=== PATIENT | female | born 1930 | race Caucasian/White ===

== ENCOUNTER 2017-10-30 02:49 | Inpatient (IN) ==
[2017-10-30] MEDS ORDERED: DILTIAZEM 100 MG VIAL.ADD IV STA (03:00)
[2017-10-30] MEDS ORDERED: DILTIAZEM INJ 100 MG in SODIUM CHLORIDE 0.9% 100 ML IV SCH (03:00)
[2017-10-30] MEDS ORDERED: DILTIAZEM 100 MG VIAL.ADD IV ONE ×2 (03:09)
[2017-10-30] MEDS ORDERED: SODIUM CHLORIDE 0.9% 100 ML IV ONE (03:10)
[2017-10-30] MEDS ORDERED: SODIUM CHLORIDE 0.9% 1,000 ML IV STA (03:32)
[2017-10-30 03:38] LABS: Basophils # 0.1 10*3/uL (0.0-0.2); Basophils % 1.1 % (0.0-0.8); Hematocrit 43.7 VOL% (35.7-47.0); Hemoglobin 13.8 GM/DL (12.0-16.0); Immature Granulocytes Absolute 0.09 #; Lymphocytes % 31.8 % (21.3-54.2); Mean Corpuscular HGB Conc 31.6 GM/DL (32-36); Mean Corpuscular Hemoglobin 29 PG (27-34); Mean Corpuscular Volume 92.4 FL (87-102); Mean Platelet Volume 10.5 FL (9.6-12.0); Monocytes # 1.1 10*3/uL (0.11-0.8); Monocytes % 11.6 % (1.7-12.7); Neutrophils # 5.1 10*3/uL (1.4-7.4); Neutrophils % 54.5 % (38.7-73.9); Platelet Count 220 T/CUMM (130-400); Red Blood Count 4.73 MC/CUMM (3.8-5.5); Red Cell Distribution Width 13.7 % (9.3-17.3); White Blood Count 9.4 T/CUMM (4-12)
[2017-10-30 03:52] LABS: Alanine Aminotransferase 35 U/L (13-56); Albumin 2.9 G/DL (3.4-5.0); Alkaline Phosphatase 60 U/L (45-117); Aspartate Amino Transferase 40 U/L (0-37); Bilirubin,Total < 0.39 MG/DL (0.2-1.0); Blood Urea Nitrogen 24 MG/DL (7-18); Calcium 8.4 MG/DL (8.5-10.1); Glucose 128 MG/DL (74-106); Osmolality,Calculated 286.3 MOS/KG (273-304); Sodium 141 MMOL/L (136-145)
[2017-10-30] MEDS ORDERED: ENOXAPARIN 60 MG/0.6 ML SYRINGE SUBCUT STA (04:47)
[2017-10-30 05:00] LABS: Apearance,Urine CLEAR (Clear); Bacteria,Urine Occasional /HPF (Few); Bilirubin,Urine Negative (Negative); Blood, Urine Negative (Negative); Glucose,Urine (UA) Negative (Negative); Hyaline Casts,Urine 1 /LPF (0-3); Ketones,Urine Negative (Negative); Mucus,Urine Occasional /LPF (Occasional); Nitrite,Urine Negative (Negative); Protein,Urine Negative; RBC,Urine 1 /HPF (0-4); Squamous Epithelial Cell,Urine Occasional /HPF (0-10); Urine Color Straw (Yellow); Urine Specific Gravity 1.004 (1.001-1.035); Urine Urobilinogen < 2.0 EU/DL (0.2-1.0); WBC,Urine 14 /HPF (0-6)
[2017-10-30] MEDS ORDERED: ACETAMINOPHEN 325 MG TABLET PO PRN (05:08)
[2017-10-30] MEDS ORDERED: MORPHINE 2 MG/1 ML SYRINGE IV PRN (05:12)
[2017-10-30] MEDS ORDERED: NITROGLYCERIN SL 0.4 MG TABLET SL PRN (05:13)
[2017-10-30] MEDS ORDERED: SODIUM CHLORIDE 0.45% 1,000 ML IV SCH (05:30)
[2017-10-30] MEDS ORDERED: PANTOPRAZOLE 40 MG TABLET PO SCH (09:00)
[2017-10-30] MEDS ORDERED: APIXABAN 2.5 MG TABLET PO SCH (09:00)
[2017-10-30] MEDS: DILTIAZEM 60 MG TABLET PO SCH ×4 (12:56→21:02)
[2017-10-30] MEDS: predniSONE 5 MG TABLET PO SCH (13:01)
[2017-10-30] MEDS: MAGNESIUM OXIDE 400 MG TABLET PO SCH (13:01)
[2017-10-30] MEDS: HYDROXYCHLOROQUINE 200 MG TABLET PO SCH (13:01)
[2017-10-30] MEDS ORDERED: TICAGRELOR 90 MG TABLET PO ONE (13:02)
[2017-10-30] MEDS: METOPROLOL SUCCINATE XL 100 MG TABLET PO SCH ×2 (13:02→21:02)
[2017-10-30] MEDS: POTASSIUM CHLORIDE 10 MEQ TABLET PO SCH (13:04)
[2017-10-30] MEDS: ASPIRIN EC 81 MG TABLET PO SCH (13:22)
[2017-10-30] MEDS ORDERED: ONDANSETRON 4 MG/2 ML VIAL IV PRN (15:43)
[2017-10-30] MEDS ORDERED: LIDOCAINE 1% 20 ML VIAL ONE (16:43)
[2017-10-30] MEDS ORDERED: diphenhydrAMINE CAP 25 MG CAPSULE PO ONE (16:48)
[2017-10-30] MEDS ORDERED: DIAZEPAM 5 MG TABLET ONE (16:48)
[2017-10-30] MEDS ORDERED: diphenhydrAMINE CAP 25 MG CAPSULE ONE (16:49)
[2017-10-30] MEDS ORDERED: DIAZEPAM 5 MG TABLET PO ONE (16:49)
[2017-10-30] MEDS ORDERED: MIDAZOLAM 2 MG/2 ML VIAL ONE (17:01)
[2017-10-30] MEDS ORDERED: ASPIRIN CHEW 81 MG TABLET PO ONE (17:01)
[2017-10-30] MEDS ORDERED: MEPERIDINE 25 MG/1 ML VIAL ONE (17:01)
[2017-10-30] MEDS ORDERED: NIFEdipine 10 MG CAPSULE ONE (17:14)
[2017-10-30] MEDS ORDERED: ENOXAPARIN 80 MG/0.8 ML SYRINGE SUBCUT SCH (18:00)
[2017-10-30] MEDS ORDERED: ONDANSETRON 4 MG/2 ML VIAL ONE (18:22)
[2017-10-30] MEDS ORDERED: SODIUM CHLORIDE 0.9% 1,000 ML IV SCH (19:00)
[2017-10-30] MEDS ORDERED: METOPROLOL TARTRATE 50 MG TABLET PO SCH (19:00)
[2017-10-30] MEDS ORDERED: ROSUVASTATIN 10 MG TABLET PO SCH (21:00)
[2017-10-30] MEDS: LANSOPRAZOLE ODT 30 MG TABLET PO SCH (21:02)
[2017-10-30] MEDS: TICAGRELOR 90 MG TABLET PO SCH (21:02)
[2017-10-30] MEDS ORDERED: ENALAPRIL 2.5 MG/2 ML VIAL IV PRN (23:38)
[2017-10-30] MEDS ORDERED: LOPERAMIDE 2 MG CAPSULE PO PRN (23:38)
[2017-10-31 02:46] LABS: Basophils # 0.1 10*3/uL (0.0-0.2); Basophils % 0.5 % (0.0-0.8); Hematocrit 44.5 VOL% (35.7-47.0); Hemoglobin 14.2 GM/DL (12.0-16.0); Immature Granulocytes % 0.8 %; Immature Granulocytes Absolute 0.11 #; Lymphocytes # 1.6 10*3/uL (1.4-4.0); Mean Corpuscular HGB Conc 31.9 GM/DL (32-36); Mean Corpuscular Hemoglobin 29 PG (27-34); Mean Corpuscular Volume 90.1 FL (87-102); Mean Platelet Volume 10.5 FL (9.6-12.0); Monocytes # 1.7 10*3/uL (0.11-0.8); Monocytes % 12.6 % (1.7-12.7); Neutrophils % 74.1 % (38.7-73.9); Platelet Count 217 T/CUMM (130-400); Red Blood Count 4.94 MC/CUMM (3.8-5.5); Red Cell Distribution Width 13.7 % (9.3-17.3); White Blood Count 13.5 T/CUMM (4-12)
[2017-10-31 05:07] LABS: Troponin I Only 0.377 NG/ML (0.00-0.045)
[2017-10-31 05:14] LABS: Calcium 8.1 MG/DL (8.5-10.1); Osmolality,Calculated 276.5 MOS/KG (273-304); Potassium 3.8 MMOL/L (3.5-5.1)
[2017-10-31] MEDS: predniSONE 5 MG TABLET PO SCH (08:23)
[2017-10-31] MEDS: MAGNESIUM OXIDE 400 MG TABLET PO SCH (08:23)
[2017-10-31] MEDS: LANSOPRAZOLE ODT 30 MG TABLET PO SCH (08:24)
[2017-10-31] MEDS: HYDROXYCHLOROQUINE 200 MG TABLET PO SCH (08:24)
[2017-10-31] MEDS: TICAGRELOR 90 MG TABLET PO SCH (08:24)
[2017-10-31] MEDS: ASPIRIN EC 81 MG TABLET PO SCH (08:24)
[2017-10-31] MEDS: METOPROLOL SUCCINATE XL 100 MG TABLET PO SCH (08:24)
[2017-10-31] MEDS: POTASSIUM CHLORIDE 10 MEQ TABLET PO SCH (08:24)
[2017-10-31] MEDS: DILTIAZEM 60 MG TABLET PO SCH (08:25)
[2017-10-31] MEDS ORDERED: ISOSORBIDE MONONITRATE 30 MG TABLET PO SCH (09:00)
[2017-10-31 11:47] VITALS: BP 131/65
[2017-10-31] MEDS ORDERED: DILTIAZEM CD 180 MG CAPSULE PO SCH (12:00)
[2017-10-31] MEDS ORDERED: FUROSEMIDE 20 MG TABLET PO SCH (12:00)
[2017-10-31 16:25] LABS: Apearance,Urine CLEAR (Clear); Bilirubin,Urine Negative (Negative); Blood, Urine Negative (Negative); Glucose,Urine (UA) 50 mg/dL (Negative); Ketones,Urine Negative (Negative); Mucus,Urine Occasional /LPF (Occasional); Nitrite,Urine Negative (Negative); Protein,Urine Negative; RBC,Urine 1 /HPF (0-4); Urine Color Yellow (Yellow); Urine Urobilinogen < 2.0 EU/DL (0.2-1.0); WBC,Urine 8 /HPF (0-6)
== END 2017-10-31 14:48 | disposition home or self-care (01) | DRG 281 ==
LOC: EDUNIT# → N.ED 02:49 → N.EDINP 05:08 → SUATTDRO 05:08 → N.TELES 05:39
PROVIDERS: ADMIT Internal Medicine; ATTEND Internal Medicine

== ENCOUNTER 2017-11-25 19:50 | Inpatient (IN) ==
[2017-11-25] MEDS ORDERED: DILTIAZEM 100 MG VIAL.ADD IV ONE (20:18)
[2017-11-25] MEDS ORDERED: METOPROLOL TARTRATE 5 MG/5 ML VIAL IV ONE (20:36)
[2017-11-25] MEDS ORDERED: DILTIAZEM 50 MG/10 ML VIAL IV ONE (20:37)
[2017-11-25] MEDS ORDERED: DILTIAZEM 50 MG/10 ML VIAL IV STA (21:02)
[2017-11-25] MEDS ORDERED: ONDANSETRON 4 MG/2 ML VIAL IV STA (21:02)
[2017-11-25] MEDS ORDERED: ASPIRIN 325 MG TABLET PO STA (21:02)
[2017-11-25 21:19] LABS: Basophils # 0.1 10*3/uL (0.0-0.2); Basophils % 0.6 % (0.0-0.8); Hematocrit 43.1 VOL% (35.7-47.0); Hemoglobin 13.4 GM/DL (12.0-16.0); Immature Granulocytes Absolute 0.14 #; Lymphocytes # 4.5 10*3/uL (1.4-4.0); Lymphocytes % 31.1 % (21.3-54.2); Mean Corpuscular HGB Conc 31.1 GM/DL (32-36); Mean Corpuscular Hemoglobin 28 PG (27-34); Mean Corpuscular Volume 91.3 FL (87-102); Mean Platelet Volume 10.8 FL (9.6-12.0); Monocytes # 1.6 10*3/uL (0.11-0.8); Monocytes % 10.7 % (1.7-12.7); Neutrophils # 8.2 10*3/uL (1.4-7.4); Neutrophils % 56.6 % (38.7-73.9); Platelet Count 284 T/CUMM (130-400); Red Blood Count 4.72 MC/CUMM (3.8-5.5); Red Cell Distribution Width 13.8 % (9.3-17.3); White Blood Count 14.5 T/CUMM (4-12)
[2017-11-25 21:25] LABS: INR 1.1; PT Patient Result 11.5 SECS
[2017-11-25] MEDS ORDERED: DILTIAZEM INJ 100 MG in SODIUM CHLORIDE 0.9% 100 ML IV SCH (21:30)
[2017-11-25 21:32] LABS: Albumin 3.3 G/DL (3.4-5.0); Bilirubin,Total 0.6 MG/DL (0.2-1.0); Osmolality,Calculated 280.7 MOS/KG (273-304); Potassium 4.1 MMOL/L (3.5-5.1); Total Protein 7.2 G/DL (6.4-8.3)
[2017-11-25] MEDS ORDERED: FUROSEMIDE 40 MG/4 ML VIAL IV STA (21:56)
[2017-11-25] MEDS ORDERED: ONDANSETRON 4 MG/2 ML VIAL ONE (22:03)
[2017-11-25] MEDS ORDERED: FUROSEMIDE 20 MG/2 ML VIAL ONE (22:03)
[2017-11-25] MEDS ORDERED: MORPHINE 4 MG/1 ML VIAL ONE (22:03)
[2017-11-25] MEDS ORDERED: ASPIRIN 325 MG TABLET ONE (22:03)
[2017-11-25] MEDS: MORPHINE 2 MG/1 ML SYRINGE IV STA ×2 (22:04→22:12)
[2017-11-25 22:42] LABS: Apearance,Urine CLEAR (Clear); Bacteria,Urine Occasional /HPF (Few); Bilirubin,Urine Negative (Negative); Blood, Urine Small mg/dL (Negative); Glucose,Urine (UA) Negative (Negative); Hyaline Casts,Urine 5 /LPF (0-3); Ketones,Urine Negative (Negative); Mucus,Urine Occasional /LPF (Occasional); Nitrite,Urine Negative (Negative); Protein,Urine Negative; RBC,Urine 2 /HPF (0-4); Squamous Epithelial Cell,Urine Occasional /HPF (0-10); Urine Color Straw (Yellow); Urine Specific Gravity 1.005 (1.001-1.035); Urine Urobilinogen < 2.0 EU/DL (0.2-1.0); WBC,Urine 19 /HPF (0-6)
[2017-11-25] MEDS ORDERED: MAGNESIUM SULF RIDER 2 GM in PREMIX 1 EACH IV PRN (22:55)
[2017-11-25] MEDS ORDERED: DILTIAZEM 60 MG TABLET PO PRN (22:55)
[2017-11-25] MEDS ORDERED: ALBUTEROL/IPRATROPIUM 3 ML NEB RESP TX PRN (22:55)
[2017-11-25] MEDS ORDERED: MAGNESIUM SULF RIDER 4 GM in PREMIX 1 EACH IV PRN (22:55)
[2017-11-25] MEDS ORDERED: ONDANSETRON 4 MG/2 ML VIAL IV PRN (22:55)
[2017-11-25] MEDS ORDERED: MORPHINE 4 MG/1 ML VIAL IV PRN (22:55)
[2017-11-25] MEDS ORDERED: POTASSIUM CHLORIDE 20 MEQ TABLET PO PRN (22:55)
[2017-11-25] MEDS ORDERED: NITROGLYCERIN SL 0.4 MG TABLET SL PRN (22:55)
[2017-11-25] MEDS: SODIUM CHLORIDE 0.9% 1,000 ML IV SCH (23:30)
[2017-11-26 05:05] LABS: Basophils # 0.1 10*3/uL (0.0-0.2); Basophils % 0.4 % (0.0-0.8); Hematocrit 39.4 VOL% (35.7-47.0); Hemoglobin 12.6 GM/DL (12.0-16.0); Immature Granulocytes % 0.7 %; Immature Granulocytes Absolute 0.08 #; Lymphocytes # 2.6 10*3/uL (1.4-4.0); Lymphocytes % 22.4 % (21.3-54.2); Mean Corpuscular Hemoglobin 29 PG (27-34); Mean Corpuscular Volume 89.3 FL (87-102); Mean Platelet Volume 10.5 FL (9.6-12.0); Monocytes # 1.1 10*3/uL (0.11-0.8); Monocytes % 9.4 % (1.7-12.7); Neutrophils # 7.8 10*3/uL (1.4-7.4); Neutrophils % 67.1 % (38.7-73.9); Platelet Count 260 T/CUMM (130-400); Red Blood Count 4.41 MC/CUMM (3.8-5.5); White Blood Count 11.6 T/CUMM (4-12)
[2017-11-26 05:44] LABS: Bilirubin,Total 0.9 MG/DL (0.2-1.0); Calcium 9.3 MG/DL (8.5-10.1); Osmolality,Calculated 282.3 MOS/KG (273-304); Potassium 4.5 MMOL/L (3.5-5.1); Risk Ratio 2.2; Thyroid Stimulating Hormone 2.98 uIU/ml (0.358-3.74); Total Protein 6.4 G/DL (6.4-8.3); VLDL CHOLESTEROL 14.4 MG/DL
[2017-11-26] MEDS: ASPIRIN EC 81 MG TABLET PO SCH (08:35)
[2017-11-26] MEDS: HYDROXYCHLOROQUINE 200 MG TABLET PO SCH (08:35)
[2017-11-26] MEDS: POTASSIUM CHLORIDE 10 MEQ TABLET PO SCH ×2 (08:35→20:12)
[2017-11-26] MEDS: METOPROLOL TARTRATE 50 MG TABLET PO SCH (08:35)
[2017-11-26] MEDS: MAGNESIUM OXIDE 400 MG TABLET PO SCH (08:35)
[2017-11-26] MEDS: APIXABAN 2.5 MG TABLET PO SCH ×2 (08:36→20:12)
[2017-11-26] MEDS: predniSONE 5 MG TABLET PO SCH (08:36)
[2017-11-26] MEDS: ISOSORBIDE MONONITRATE 30 MG TABLET PO SCH (08:36)
[2017-11-26] MEDS: PANTOPRAZOLE 40 MG TABLET PO SCH (08:36)
[2017-11-26] MEDS: FUROSEMIDE 20 MG/2 ML VIAL IV SCH ×2 (08:40→16:05)
[2017-11-26] MEDS: LACTOBACILLUS ACIDOPHILUS/BULGARICUS CAPLET PO SCH (09:02)
[2017-11-26] MEDS ORDERED: BISACODYL 5 MG TABLET PO PRN (15:27)
[2017-11-26] MEDS ORDERED: ZALEPLON 5 MG CAPSULE PO PRN (15:27)
[2017-11-26] MEDS ORDERED: ACETAMINOPHEN 325 MG TABLET PO PRN (15:27)
[2017-11-26] MEDS ORDERED: guaiFENesin/DM ER 600-30 MG TABLET PO PRN (15:27)
[2017-11-26] MEDS ORDERED: diphenhydrAMINE CAP 25 MG CAPSULE PO PRN (15:27)
[2017-11-26] MEDS ORDERED: DILTIAZEM CD 240 MG CAPSULE PO ONE (15:33)
[2017-11-27] MEDS: SODIUM CHLORIDE 0.9% 1,000 ML IV SCH (02:00)
[2017-11-27 07:57] VITALS: BP 146/72
[2017-11-27] MEDS ORDERED: DILTIAZEM CD 240 MG CAPSULE PO SCH (09:00)
[2017-11-27] MEDS: LACTOBACILLUS ACIDOPHILUS/BULGARICUS CAPLET PO SCH (09:31)
[2017-11-27] MEDS: ASPIRIN EC 81 MG TABLET PO SCH (09:31)
[2017-11-27] MEDS: APIXABAN 2.5 MG TABLET PO SCH (09:32)
[2017-11-27] MEDS: METOPROLOL TARTRATE 50 MG TABLET PO SCH (09:32)
[2017-11-27] MEDS: ISOSORBIDE MONONITRATE 30 MG TABLET PO SCH (09:33)
[2017-11-27] MEDS: POTASSIUM CHLORIDE 10 MEQ TABLET PO SCH (09:34)
[2017-11-27] MEDS: MAGNESIUM OXIDE 400 MG TABLET PO SCH (09:34)
[2017-11-27] MEDS: predniSONE 5 MG TABLET PO SCH (09:35)
[2017-11-27] MEDS: HYDROXYCHLOROQUINE 200 MG TABLET PO SCH (09:35)
[2017-11-27] MEDS: PANTOPRAZOLE 40 MG TABLET PO SCH (09:35)
[2017-11-27] MEDS: FUROSEMIDE 20 MG/2 ML VIAL IV SCH (09:38)
== END 2017-11-27 12:26 | disposition home or self-care (01) | DRG 308 ==
LOC: N.ED 19:50 → N.EDINP 22:02 → N.TELEN 22:27
PROVIDERS: ADMIT Internal Medicine Clinical Cardiac Electrophysiology; ATTEND Internal Medicine Clinical Cardiac Electrophysiology

== ENCOUNTER 2018-07-16 11:51 | Observation (INO) ==
[2018-07-16 13:25] LABS: Basophils # 0.1 10*3/uL (0.0-0.2); Basophils % 0.8 % (0.0-0.8); Hematocrit 43.8 VOL% (35.7-47.0); Hemoglobin 13.3 GM/DL (12.0-16.0); Immature Granulocytes % 0.7 %; Immature Granulocytes Absolute 0.07 #; Lymphocytes # 2.7 10*3/uL (1.4-4.0); Lymphocytes % 26.1 % (21.3-54.2); Mean Corpuscular HGB Conc 30.4 GM/DL (32-36); Mean Corpuscular Hemoglobin 26 PG (27-34); Mean Corpuscular Volume 86.2 FL (87-102); Mean Platelet Volume 9.6 FL (9.6-12.0); Monocytes # 1.3 10*3/uL (0.11-0.8); Monocytes % 12.8 % (1.7-12.7); Neutrophils # 6.1 10*3/uL (1.4-7.4); Neutrophils % 59.6 % (38.7-73.9); Platelet Count 260 T/CUMM (130-400); Red Blood Count 5.08 MC/CUMM (3.8-5.5); Red Cell Distribution Width 16.3 % (9.3-17.3); White Blood Count 10.3 T/CUMM (4-12)
[2018-07-16 13:58] LABS: Amorphous Crystals,Urine Moderate /HPF (Few); Apearance,Urine CLOUDY (Clear); Bilirubin,Urine Negative (Negative); Blood, Urine Negative (Negative); Glucose,Urine (UA) Negative (Negative); Ketones,Urine Negative (Negative); Nitrite,Urine Negative (Negative); Protein,Urine Negative; RBC,Urine 3 /HPF (0-4); Urine Color Yellow (Yellow); Urine Specific Gravity 1.011 (1.001-1.035); Urine Urobilinogen < 2.0 EU/DL (0.2-1.0); WBC,Urine 3 /HPF (0-6)
[2018-07-16 14:06] LABS: Albumin 3.4 G/DL (3.4-5.0); Bilirubin,Total 0.4 MG/DL (0.2-1.0); Calcium 10.1 MG/DL (8.5-10.1); Osmolality,Calculated 285.3 MOS/KG (273-304); Total Protein 6.9 G/DL (6.4-8.3)
[2018-07-16] MEDS ORDERED: ACETAMINOPHEN 325 MG TABLET PO PRN (14:36)
[2018-07-16] MEDS ORDERED: DILTIAZEM 50 MG/10 ML VIAL IV STA (14:39)
[2018-07-16] MEDS ORDERED: DILTIAZEM 25 MG/5 ML VIAL IV ONE (14:40)
[2018-07-16] MEDS ORDERED: NITROGLYCERIN SL 0.4 MG TABLET SL PRN (14:55)
[2018-07-16] MEDS ORDERED: INFLUENZA VIRUS VACCINE 0.5 ML SYRINGE IM ONE (15:40)
[2018-07-16] MEDS: APIXABAN 2.5 MG TABLET PO SCH (20:57)
[2018-07-16] MEDS: FAMOTIDINE 20 MG TABLET PO SCH (20:57)
[2018-07-16] MEDS ORDERED: METOPROLOL TARTRATE 100 MG TABLET PO SCH (21:00)
[2018-07-17 05:31] LABS: INR 1.1; PT Patient Result 11.7 SECS; Partial Thromboplastin Time 27.4 SECS (0-40)
[2018-07-17 05:36] LABS: Basophils # 0.1 10*3/uL (0.0-0.2); Basophils % 0.7 % (0.0-0.8); Hematocrit 40.2 VOL% (35.7-47.0); Immature Granulocytes % 0.6 %; Immature Granulocytes Absolute 0.05 #; Lymphocytes # 2.3 10*3/uL (1.4-4.0); Lymphocytes % 27.1 % (21.3-54.2); Mean Corpuscular HGB Conc 29.9 GM/DL (32-36); Mean Corpuscular Hemoglobin 26 PG (27-34); Mean Corpuscular Volume 86.5 FL (87-102); Mean Platelet Volume 10.9 FL (9.6-12.0); Monocytes # 1.3 10*3/uL (0.11-0.8); Monocytes % 14.8 % (1.7-12.7); Neutrophils # 4.8 10*3/uL (1.4-7.4); Neutrophils % 56.8 % (38.7-73.9); Platelet Count 250 T/CUMM (130-400); Red Blood Count 4.65 MC/CUMM (3.8-5.5); Red Cell Distribution Width 16.3 % (9.3-17.3); White Blood Count 8.5 T/CUMM (4-12)
[2018-07-17 05:58] LABS: Albumin 2.8 G/DL (3.4-5.0); Bilirubin,Total 0.9 MG/DL (0.2-1.0); Calcium 8.8 MG/DL (8.5-10.1); Osmolality,Calculated 285.3 MOS/KG (273-304); Potassium 3.7 MMOL/L (3.5-5.1); Risk Ratio 2.74; Thyroid Stimulating Hormone 1.32 uIU/ml (0.358-3.74); Total Protein 6.1 G/DL (6.4-8.3); VLDL CHOLESTEROL 17.8 MG/DL
[2018-07-17 07:50] VITALS: BP 185/81
[2018-07-17] MEDS ORDERED: POTASSIUM CHLORIDE 10 MEQ TABLET PO SCH (09:00)
[2018-07-17] MEDS ORDERED: ISOSORBIDE MONONITRATE 30 MG TABLET PO SCH (09:00)
[2018-07-17] MEDS ORDERED: METOPROLOL TARTRATE 50 MG TABLET PO SCH (09:00)
[2018-07-17] MEDS ORDERED: DILTIAZEM CD 180 MG CAPSULE PO SCH (09:00)
[2018-07-17] MEDS ORDERED: HYDROXYCHLOROQUINE 200 MG TABLET PO SCH (09:00)
[2018-07-17] MEDS ORDERED: predniSONE 10 MG TABLET PO SCH (09:00)
[2018-07-17] MEDS ORDERED: DILTIAZEM CD 120 MG CAPSULE PO SCH (09:00)
[2018-07-17] MEDS ORDERED: MAGNESIUM OXIDE 400 MG TABLET PO SCH (09:00)
[2018-07-17] MEDS ORDERED: ASPIRIN EC 81 MG TABLET PO SCH (09:00)
[2018-07-17] MEDS: APIXABAN 2.5 MG TABLET PO SCH (09:35)
[2018-07-17] MEDS: FAMOTIDINE 20 MG TABLET PO SCH (09:37)
== END 2018-07-17 12:37 | disposition home or self-care (01) ==
LOC: N.ED 11:51 → N.EDINP 11:51 → N.TELES 14:59
PROVIDERS: ADMIT Internal Medicine; ATTEND Internal Medicine

== ENCOUNTER 2018-08-20 08:44 | Inpatient (IN) ==
[2018-08-20] MEDS ORDERED: NITROGLYCERIN 2% OINT 1 INCH/GM PACK TOP STA (09:21)
[2018-08-20] MEDS ORDERED: FUROSEMIDE 100 MG/10 ML VIAL IV STA (09:21)
[2018-08-20] MEDS ORDERED: MORPHINE 4 MG/1 ML VIAL IV STA (09:23)
[2018-08-20 10:10] LABS: Basophils # 0.1 10*3/uL (0.0-0.2); Basophils % 0.5 % (0.0-0.8); Hematocrit 38.1 VOL% (35.7-47.0); Hemoglobin 11.4 GM/DL (12.0-16.0); Immature Granulocytes % 0.7 %; Immature Granulocytes Absolute 0.09 #; Lymphocytes # 1.8 10*3/uL (1.4-4.0); Lymphocytes % 13.7 % (21.3-54.2); Mean Corpuscular HGB Conc 29.9 GM/DL (32-36); Mean Corpuscular Hemoglobin 26 PG (27-34); Mean Corpuscular Volume 87.2 FL (87-102); Mean Platelet Volume 9.8 FL (9.6-12.0); Monocytes # 1.5 10*3/uL (0.11-0.8); Monocytes % 11.4 % (1.7-12.7); Neutrophils # 9.4 10*3/uL (1.4-7.4); Neutrophils % 73.7 % (38.7-73.9); Platelet Count 270 T/CUMM (130-400); Red Blood Count 4.37 MC/CUMM (3.8-5.5); Red Cell Distribution Width 15.1 % (9.3-17.3); White Blood Count 12.8 T/CUMM (4-12)
[2018-08-20 10:26] LABS: Bilirubin,Total 0.6 MG/DL (0.2-1.0); Calcium 9.1 MG/DL (8.5-10.1); Osmolality,Calculated 280.4 MOS/KG (273-304); Total Protein 6.5 G/DL (6.4-8.3)
[2018-08-20 10:28] LABS: Amorphous Crystals,Urine Occasional /HPF (Few); Apearance,Urine Slightly Hazy (Clear); Bacteria,Urine Occasional /HPF (Few); Bilirubin,Urine Negative (Negative); Blood, Urine Negative (Negative); Glucose,Urine (UA) Negative (Negative); Ketones,Urine Negative (Negative); Mucus,Urine Occasional /LPF (Occasional); Nitrite,Urine Negative (Negative); Protein,Urine Negative; RBC,Urine 1 /HPF (0-4); Squamous Epithelial Cell,Urine Occasional /HPF (0-10); Urine Color Yellow (Yellow); Urine Specific Gravity 1.017 (1.001-1.035); Urine Urobilinogen < 2.0 EU/DL (0.2-1.0); WBC,Urine <1 /HPF (0-6)
[2018-08-20] MEDS ORDERED: MORPHINE 4 MG/1 ML VIAL IV PRN (11:48)
[2018-08-20] MEDS ORDERED: MAGNESIUM SULF RIDER 2 GM in PREMIX 1 EACH IV PRN (11:48)
[2018-08-20] MEDS ORDERED: MAGNESIUM SULF RIDER 4 GM in PREMIX 1 EACH IV PRN (11:48)
[2018-08-20] MEDS ORDERED: NITROGLYCERIN SL 0.4 MG TABLET SL PRN (11:51)
[2018-08-20] MEDS ORDERED: NITROGLYCERIN 2% OINT 1 INCH/GM PACK TOP SCH (12:00)
[2018-08-20] MEDS: FUROSEMIDE 40 MG/4 ML VIAL IV SCH (16:04)
[2018-08-20] MEDS ORDERED: guaiFENesin/DM ER 600-30 MG TABLET PO PRN (16:05)
[2018-08-20] MEDS ORDERED: DOCUSATE SODIUM 100 MG CAPSULE PO PRN (16:05)
[2018-08-20] MEDS ORDERED: diphenhydrAMINE CAP 25 MG CAPSULE PO PRN (16:05)
[2018-08-20] MEDS ORDERED: BISACODYL 5 MG TABLET PO PRN (16:05)
[2018-08-20] MEDS ORDERED: LACTULOSE 20 GM/30 ML UDCUP PO PRN (16:05)
[2018-08-20] MEDS ORDERED: PROMETHAZINE 25 MG TABLET PO PRN (16:05)
[2018-08-20] MEDS ORDERED: ONDANSETRON 4 MG/2 ML VIAL IV PRN (16:05)
[2018-08-20] MEDS ORDERED: ACETAMINOPHEN 325 MG TABLET PO PRN (16:05)
[2018-08-20] MEDS ORDERED: ZALEPLON 5 MG CAPSULE PO PRN (16:05)
[2018-08-20] MEDS ORDERED: [UNRECOGNIZED DRUG - OTHER] PO PRN (16:12)
[2018-08-20] MEDS ORDERED: ASPIRIN PO PRN (16:12)
[2018-08-20] MEDS ORDERED: SOD BICARB PO PRN (16:12)
[2018-08-20] MEDS ORDERED: CITRIC ACID PO PRN (16:12)
[2018-08-20] MEDS ORDERED: IPRATROPIUM 0.06% NASAL SPRAY 15 ML BOTTLE BOTH NARES PRN (16:12)
[2018-08-20] MEDS ORDERED: LEVOFLOXACIN INJ 500 MG in PREMIX 1 EACH IV SCH (16:30)
[2018-08-20] MEDS: LEVOFLOXACIN 500 MG TABLET PO SCH (17:54)
[2018-08-20] MEDS: FAMOTIDINE 20 MG TABLET PO SCH (21:00)
[2018-08-20] MEDS: METOPROLOL TARTRATE 100 MG TABLET PO SCH (21:00)
[2018-08-20] MEDS: APIXABAN 2.5 MG TABLET PO SCH (21:00)
[2018-08-20] MEDS: dilTIAZem Drip 125 MG/125 ML PREMIX IV SCH (21:53)
[2018-08-20] MEDS: ALBUTEROL/IPRATROPIUM 3 ML NEB RESP TX SCH (23:48)
[2018-08-21] MEDS: ALBUTEROL/IPRATROPIUM 3 ML NEB RESP TX SCH ×6 (03:55→20:22)
[2018-08-21 04:34] LABS: Basophils # 0.1 10*3/uL (0.0-0.2); Basophils % 0.6 % (0.0-0.8); Hematocrit 38.6 VOL% (35.7-47.0); Hemoglobin 11.6 GM/DL (12.0-16.0); Immature Granulocytes % 0.9 %; Immature Granulocytes Absolute 0.08 #; Lymphocytes # 2.2 10*3/uL (1.4-4.0); Lymphocytes % 24.6 % (21.3-54.2); Mean Corpuscular HGB Conc 30.1 GM/DL (32-36); Mean Corpuscular Hemoglobin 26 PG (27-34); Mean Corpuscular Volume 87.1 FL (87-102); Monocytes # 1.3 10*3/uL (0.11-0.8); Monocytes % 14.6 % (1.7-12.7); Neutrophils # 5.4 10*3/uL (1.4-7.4); Neutrophils % 59.3 % (38.7-73.9); Platelet Count 256 T/CUMM (130-400); Red Blood Count 4.43 MC/CUMM (3.8-5.5)
[2018-08-21 04:52] LABS: Calcium 9.1 MG/DL (8.5-10.1); Osmolality,Calculated 276.8 MOS/KG (273-304); Potassium 3.5 MMOL/L (3.5-5.1)
[2018-08-21 04:57] LABS: Risk Ratio 2.58; VLDL CHOLESTEROL 20.4 MG/DL
[2018-08-21] MEDS ORDERED: MAGNESIUM HYDROX PO SCH (09:00)
[2018-08-21] MEDS ORDERED: [UNRECOGNIZED DRUG - OTHER] PO SCH (09:00)
[2018-08-21] MEDS ORDERED: CALCIUM CARB PO SCH (09:00)
[2018-08-21] MEDS ORDERED: INFLUENZA VIRUS VACCINE 0.5 ML SYRINGE IM ONE (09:00)
[2018-08-21] MEDS: ISOSORBIDE MONONITRATE 30 MG TABLET PO SCH (09:48)
[2018-08-21] MEDS: LACTOBACILLUS ACIDOPHILUS/BULGARICUS CAPLET PO SCH (09:49)
[2018-08-21] MEDS: FAMOTIDINE 20 MG TABLET PO SCH ×2 (09:49→21:28)
[2018-08-21] MEDS: LANSOPRAZOLE ODT 30 MG TABLET PO SCH (09:50)
[2018-08-21] MEDS: DILTIAZEM CD 180 MG CAPSULE PO SCH (09:50)
[2018-08-21] MEDS: ASPIRIN EC 81 MG TABLET PO SCH (09:50)
[2018-08-21] MEDS: LEVOFLOXACIN 500 MG TABLET PO SCH (09:50)
[2018-08-21] MEDS: MAGNESIUM OXIDE 400 MG TABLET PO SCH (09:50)
[2018-08-21] MEDS: POTASSIUM CHLORIDE 10 MEQ TABLET PO SCH (09:50)
[2018-08-21] MEDS: HYDROXYCHLOROQUINE 200 MG TABLET PO SCH (09:50)
[2018-08-21] MEDS: predniSONE 5 MG TABLET PO SCH (09:50)
[2018-08-21] MEDS: FUROSEMIDE 40 MG/4 ML VIAL IV SCH ×2 (09:51→16:16)
[2018-08-21] MEDS: APIXABAN 2.5 MG TABLET PO SCH ×2 (09:51→21:27)
[2018-08-21] MEDS: METOPROLOL TARTRATE 100 MG TABLET PO SCH (21:28)
[2018-08-22] MEDS: ALBUTEROL/IPRATROPIUM 3 ML NEB RESP TX SCH ×7 (00:05→22:40)
[2018-08-22] MEDS: dilTIAZem Drip 125 MG/125 ML PREMIX IV SCH ×2 (02:35→23:03)
[2018-08-22] MEDS: LANSOPRAZOLE ODT 30 MG TABLET PO SCH (07:19)
[2018-08-22] MEDS: APIXABAN 2.5 MG TABLET PO SCH ×2 (09:03→21:57)
[2018-08-22] MEDS: POTASSIUM CHLORIDE 10 MEQ TABLET PO SCH (09:03)
[2018-08-22] MEDS: ASPIRIN EC 81 MG TABLET PO SCH (09:03)
[2018-08-22] MEDS: LACTOBACILLUS ACIDOPHILUS/BULGARICUS CAPLET PO SCH (09:03)
[2018-08-22] MEDS: FAMOTIDINE 20 MG TABLET PO SCH ×2 (09:03→21:57)
[2018-08-22] MEDS: HYDROXYCHLOROQUINE 200 MG TABLET PO SCH (09:03)
[2018-08-22] MEDS: ISOSORBIDE MONONITRATE 30 MG TABLET PO SCH (09:03)
[2018-08-22] MEDS: MAGNESIUM OXIDE 400 MG TABLET PO SCH (09:03)
[2018-08-22] MEDS: predniSONE 5 MG TABLET PO SCH (09:03)
[2018-08-22] MEDS: FUROSEMIDE 40 MG/4 ML VIAL IV SCH ×2 (09:04→16:46)
[2018-08-22] MEDS: DILTIAZEM CD 180 MG CAPSULE PO SCH (09:04)
[2018-08-22] MEDS: METOPROLOL TARTRATE 100 MG TABLET PO SCH (21:57)
[2018-08-23] MEDS: ALBUTEROL/IPRATROPIUM 3 ML NEB RESP TX SCH ×5 (02:51→19:26)
[2018-08-23 04:15] LABS: Basophils # 0.1 10*3/uL (0.0-0.2); Basophils % 0.5 % (0.0-0.8); Hematocrit 36.9 VOL% (35.7-47.0); Hemoglobin 11.3 GM/DL (12.0-16.0); Immature Granulocytes % 1.4 %; Immature Granulocytes Absolute 0.15 #; Lymphocytes # 2.4 10*3/uL (1.4-4.0); Lymphocytes % 22.4 % (21.3-54.2); Mean Corpuscular HGB Conc 30.6 GM/DL (32-36); Mean Corpuscular Hemoglobin 27 PG (27-34); Mean Corpuscular Volume 86.6 FL (87-102); Mean Platelet Volume 9.7 FL (9.6-12.0); Monocytes # 1.6 10*3/uL (0.11-0.8); Monocytes % 14.7 % (1.7-12.7); Neutrophils # 6.6 10*3/uL (1.4-7.4); Platelet Count 260 T/CUMM (130-400); Red Blood Count 4.26 MC/CUMM (3.8-5.5); Red Cell Distribution Width 15.2 % (9.3-17.3); White Blood Count 10.8 T/CUMM (4-12)
[2018-08-23 04:44] LABS: Alanine Aminotransferase 25 U/L (13-56); Albumin 2.6 G/DL (3.4-5.0); Alkaline Phosphatase 49 U/L (45-117); Aspartate Amino Transferase 22 U/L (0-37); Bilirubin,Total < 0.39 MG/DL (0.2-1.0); Blood Urea Nitrogen 37 MG/DL (7-18); Calcium 9.4 MG/DL (8.5-10.1); Glucose 100 MG/DL (74-106); Potassium 3.5 MMOL/L (3.5-5.1); Sodium 136 MMOL/L (136-145); Total Protein 6.4 G/DL (6.4-8.3)
[2018-08-23] MEDS: LANSOPRAZOLE ODT 30 MG TABLET PO SCH (09:07)
[2018-08-23] MEDS: HYDROXYCHLOROQUINE 200 MG TABLET PO SCH (09:07)
[2018-08-23] MEDS: LACTOBACILLUS ACIDOPHILUS/BULGARICUS CAPLET PO SCH (09:07)
[2018-08-23] MEDS: MAGNESIUM OXIDE 400 MG TABLET PO SCH (09:07)
[2018-08-23] MEDS: FAMOTIDINE 20 MG TABLET PO SCH ×2 (09:07→21:15)
[2018-08-23] MEDS: POTASSIUM CHLORIDE 20 MEQ TABLET PO SCH (09:08)
[2018-08-23] MEDS: ASPIRIN EC 81 MG TABLET PO SCH (09:08)
[2018-08-23] MEDS: APIXABAN 2.5 MG TABLET PO SCH ×2 (09:08→21:15)
[2018-08-23] MEDS: predniSONE 5 MG TABLET PO SCH (09:08)
[2018-08-23] MEDS: ISOSORBIDE MONONITRATE 30 MG TABLET PO SCH (09:09)
[2018-08-23] MEDS: DILTIAZEM CD 240 MG CAPSULE PO SCH (09:17)
[2018-08-23] MEDS: ASCORBIC ACID 500 MG TABLET PO SCH ×2 (09:17→21:15)
[2018-08-23] MEDS: FUROSEMIDE 40 MG TABLET PO SCH (09:17)
[2018-08-23] MEDS: FUROSEMIDE 40 MG/4 ML VIAL IV SCH (11:20)
[2018-08-23] MEDS: POTASSIUM CHLORIDE 20 MEQ TABLET PO PRN ×2 (14:05→18:00)
[2018-08-23] MEDS: METOPROLOL TARTRATE 100 MG TABLET PO SCH (21:15)
[2018-08-24] MEDS: ALBUTEROL/IPRATROPIUM 3 ML NEB RESP TX SCH ×3 (01:21→07:00)
[2018-08-24] MEDS: dilTIAZem Drip 125 MG/125 ML PREMIX IV SCH (02:44)
[2018-08-24 05:24] LABS: Osmolality,Calculated 284.8 MOS/KG (273-304)
[2018-08-24 08:28] VITALS: BP 154/65
[2018-08-24] MEDS: ISOSORBIDE MONONITRATE 30 MG TABLET PO SCH (08:51)
[2018-08-24] MEDS: ASCORBIC ACID 500 MG TABLET PO SCH (08:51)
[2018-08-24] MEDS: POTASSIUM CHLORIDE 20 MEQ TABLET PO SCH (08:51)
[2018-08-24] MEDS: LANSOPRAZOLE ODT 30 MG TABLET PO SCH (08:51)
[2018-08-24] MEDS: FUROSEMIDE 40 MG TABLET PO SCH (08:51)
[2018-08-24] MEDS: FAMOTIDINE 20 MG TABLET PO SCH (08:51)
[2018-08-24] MEDS: MAGNESIUM OXIDE 400 MG TABLET PO SCH (08:51)
[2018-08-24] MEDS: LACTOBACILLUS ACIDOPHILUS/BULGARICUS CAPLET PO SCH (08:51)
[2018-08-24] MEDS: APIXABAN 2.5 MG TABLET PO SCH (08:52)
[2018-08-24] MEDS: ASPIRIN EC 81 MG TABLET PO SCH (08:52)
[2018-08-24] MEDS: DILTIAZEM CD 240 MG CAPSULE PO SCH (08:52)
[2018-08-24] MEDS: HYDROXYCHLOROQUINE 200 MG TABLET PO SCH (08:52)
[2018-08-24] MEDS: predniSONE 5 MG TABLET PO SCH (08:52)
== END 2018-08-24 10:30 | disposition home or self-care (01) | DRG 292 ==
LOC: N.ED 08:44 → N.EDINP 11:48 → N.TELEN 13:48
PROVIDERS: ADMIT Internal Medicine Interventional Cardiology; ATTEND Internal Medicine Interventional Cardiology

== ENCOUNTER 2019-03-20 10:04 | Inpatient (IN) ==
[2019-03-20] MEDS ORDERED: DILTIAZEM 50 MG/10 ML VIAL IV STA ×2 (10:26→10:54)
[2019-03-20 10:54] LABS: Basophils # 0.1 10*3/uL (0.0-0.2); Basophils % 0.5 % (0.0-0.8); Hematocrit 41.5 VOL% (35.7-47.0); Hemoglobin 12.8 GM/DL (12.0-16.0); Immature Granulocytes % 0.8 %; Lymphocytes # 1.5 10*3/uL (1.4-4.0); Lymphocytes % 11.6 % (21.3-54.2); Mean Corpuscular HGB Conc 30.8 GM/DL (32-36); Mean Corpuscular Volume 89.6 FL (87-102); Mean Platelet Volume 9.8 FL (9.6-12.0); Monocytes % 10.9 % (1.7-12.7); Neutrophils % 76.2 % (38.7-73.9); Platelet Count 233 T/CUMM (130-400); Red Blood Count 4.63 MC/CUMM (3.8-5.5); Red Cell Distribution Width 17.2 % (9.3-17.3); White Blood Count 13.2 T/CUMM (4-12)
[2019-03-20] MEDS: dilTIAZem Drip 125 MG/125 ML PREMIX IV SCH (11:28)
[2019-03-20 11:41] LABS: Albumin 3.2 G/DL (3.4-5.0); Bilirubin,Total 0.8 MG/DL (0.2-1.0); Calcium 9.6 MG/DL (8.5-10.1); Osmolality,Calculated 283.3 MOS/KG (273-304); Thyroid Stimulating Hormone 2.07 uIU/ml (0.358-3.74); Total Protein 7.3 G/DL (6.4-8.3)
[2019-03-20 11:43] LABS: Apearance,Urine CLEAR (Clear); Bilirubin,Urine Negative (Negative); Blood, Urine Negative (Negative); Glucose,Urine (UA) Negative (Negative); Hyaline Casts,Urine 3 /LPF (0-3); Ketones,Urine Negative (Negative); Mucus,Urine Occasional /LPF (Occasional); Nitrite,Urine Negative (Negative); Protein,Urine Negative; RBC,Urine <1 /HPF (0-4); Squamous Epithelial Cell,Urine Occasional /HPF (0-10); Urine Color Straw (Yellow); Urine Specific Gravity 1.006 (1.001-1.035); Urine Urobilinogen < 2.0 EU/DL (0.2-1.0); WBC,Urine <1 /HPF (0-6)
[2019-03-20] MEDS ORDERED: METOPROLOL TARTRATE 5 MG/5 ML VIAL IV STA (12:12)
[2019-03-20] MEDS ORDERED: MAGNESIUM SULF RIDER 2 GM in PREMIX 1 EACH IV PRN (12:17)
[2019-03-20] MEDS ORDERED: MORPHINE 4 MG/1 ML VIAL IV PRN (12:17)
[2019-03-20] MEDS ORDERED: MAGNESIUM SULF RIDER 4 GM in PREMIX 1 EACH IV PRN (12:17)
[2019-03-20] MEDS ORDERED: NITROGLYCERIN SL 0.4 MG TABLET SL PRN ×2 (12:25)
[2019-03-20] MEDS: MONTELUKAST 10 MG TABLET PO SCH (21:28)
[2019-03-20] MEDS: APIXABAN 2.5 MG TABLET PO SCH (21:28)
[2019-03-21] MEDS ORDERED: diphenhydrAMINE CAP 25 MG CAPSULE PO PRN (09:30)
[2019-03-21] MEDS ORDERED: MAGNESIUM HYDROXIDE SUSP 30 ML UDCUP PO PRN (09:30)
[2019-03-21] MEDS ORDERED: guaiFENesin/DM ER 600-30 MG TABLET PO PRN (09:30)
[2019-03-21] MEDS ORDERED: BISACODYL 5 MG TABLET PO PRN (09:30)
[2019-03-21] MEDS ORDERED: ACETAMINOPHEN 325 MG TABLET PO PRN (09:30)
[2019-03-21] MEDS ORDERED: DOCUSATE SODIUM 100 MG CAPSULE PO PRN (09:30)
[2019-03-21] MEDS ORDERED: ZALEPLON 5 MG CAPSULE PO PRN (09:30)
[2019-03-21] MEDS ORDERED: ONDANSETRON 4 MG/2 ML VIAL IV PRN (09:30)
[2019-03-21] MEDS: POTASSIUM CHLORIDE 10 MEQ TABLET PO SCH (09:34)
[2019-03-21] MEDS: MAGNESIUM OXIDE 400 MG TABLET PO SCH (09:34)
[2019-03-21] MEDS: HYDROXYCHLOROQUINE 200 MG TABLET PO SCH (09:34)
[2019-03-21] MEDS: MULTIVITAMIN (CENTRUM) TABLET PO SCH (09:34)
[2019-03-21] MEDS: ISOSORBIDE MONONITRATE 30 MG TABLET PO SCH (09:35)
[2019-03-21] MEDS: APIXABAN 2.5 MG TABLET PO SCH ×2 (09:35→20:51)
[2019-03-21] MEDS: DILTIAZEM CD 240 MG CAPSULE PO SCH (09:36)
[2019-03-21] MEDS: ASPIRIN EC 81 MG TABLET PO SCH (09:36)
[2019-03-21] MEDS: FUROSEMIDE 40 MG TABLET PO SCH (09:36)
[2019-03-21] MEDS: METOPROLOL TARTRATE 50 MG TABLET PO SCH ×2 (09:36→20:51)
[2019-03-21] MEDS: ASCORBIC ACID 500 MG TABLET PO SCH ×2 (09:36→20:51)
[2019-03-21] MEDS: LANSOPRAZOLE ODT 30 MG TABLET PO SCH (09:37)
[2019-03-21] MEDS: predniSONE 5 MG TABLET PO SCH (09:37)
[2019-03-21] MEDS: dilTIAZem Drip 125 MG/125 ML PREMIX IV SCH (12:41)
[2019-03-21] MEDS: MONTELUKAST 10 MG TABLET PO SCH (20:51)
[2019-03-22 05:10] LABS: Basophils # 0.1 10*3/uL (0.0-0.2); Basophils % 0.7 % (0.0-0.8); Hematocrit 38.9 VOL% (35.7-47.0); Hemoglobin 11.8 GM/DL (12.0-16.0); Immature Granulocytes % 1.3 %; Immature Granulocytes Absolute 0.11 #; Lymphocytes % 23.9 % (21.3-54.2); Mean Corpuscular HGB Conc 30.3 GM/DL (32-36); Mean Corpuscular Volume 90.5 FL (87-102); Mean Platelet Volume 10.6 FL (9.6-12.0); Monocytes % 12.3 % (1.7-12.7); Neutrophils % 61.8 % (38.7-73.9); Platelet Count 207 T/CUMM (130-400); Red Cell Distribution Width 16.5 % (9.3-17.3); White Blood Count 8.5 T/CUMM (4-12)
[2019-03-22 05:21] LABS: Calcium 8.7 MG/DL (8.5-10.1); Osmolality,Calculated 283.4 MOS/KG (273-304)
[2019-03-22] MEDS: MULTIVITAMIN (CENTRUM) TABLET PO SCH (08:52)
[2019-03-22] MEDS: FUROSEMIDE 40 MG TABLET PO SCH (08:52)
[2019-03-22] MEDS: APIXABAN 2.5 MG TABLET PO SCH ×2 (08:53→21:57)
[2019-03-22] MEDS: METOPROLOL TARTRATE 50 MG TABLET PO SCH (08:53)
[2019-03-22] MEDS: ASCORBIC ACID 500 MG TABLET PO SCH ×2 (08:53→21:57)
[2019-03-22] MEDS: ASPIRIN EC 81 MG TABLET PO SCH (08:53)
[2019-03-22] MEDS: ISOSORBIDE MONONITRATE 30 MG TABLET PO SCH (08:53)
[2019-03-22] MEDS: MAGNESIUM OXIDE 400 MG TABLET PO SCH (08:53)
[2019-03-22] MEDS: POTASSIUM CHLORIDE 10 MEQ TABLET PO SCH (08:53)
[2019-03-22] MEDS: HYDROXYCHLOROQUINE 200 MG TABLET PO SCH (08:54)
[2019-03-22] MEDS: DILTIAZEM CD 240 MG CAPSULE PO SCH (08:55)
[2019-03-22] MEDS: predniSONE 5 MG TABLET PO SCH (11:23)
[2019-03-22] MEDS: LANSOPRAZOLE ODT 30 MG TABLET PO SCH (11:23)
[2019-03-22] MEDS: dilTIAZem Drip 125 MG/125 ML PREMIX IV SCH (12:27)
[2019-03-22] MEDS: METOPROLOL TARTRATE 5 MG/5 ML VIAL IV SCH ×3 (15:41→17:57)
[2019-03-22] MEDS: SOTALOL 80 MG TABLET PO SCH ×2 (16:18→21:57)
[2019-03-22] MEDS: MONTELUKAST 10 MG TABLET PO SCH (21:57)
[2019-03-23 04:55] LABS: Calcium 8.9 MG/DL (8.5-10.1); Osmolality,Calculated 279.5 MOS/KG (273-304)
[2019-03-23 05:08] LABS: Basophils # 0.1 10*3/uL (0.0-0.2); Basophils % 0.7 % (0.0-0.8); Hematocrit 38.2 VOL% (35.7-47.0); Immature Granulocytes % 1.2 %; Lymphocytes % 23.5 % (21.3-54.2); Mean Corpuscular HGB Conc 30.4 GM/DL (32-36); Mean Corpuscular Volume 91.2 FL (87-102); Mean Platelet Volume 10.3 FL (9.6-12.0); Monocytes % 12.8 % (1.7-12.7); Neutrophils % 61.8 % (38.7-73.9); Platelet Count 216 T/CUMM (130-400); Red Blood Count 4.19 MC/CUMM (3.8-5.5); Red Cell Distribution Width 16.3 % (9.3-17.3); White Blood Count 8.3 T/CUMM (4-12)
[2019-03-23 05:09] LABS: Hemoglobin 11.6 GM/DL (12.0-16.0)
[2019-03-23] MEDS ORDERED: FUROSEMIDE 40 MG/4 ML VIAL IV ONE (08:16)
[2019-03-23] MEDS: ASCORBIC ACID 500 MG TABLET PO SCH ×2 (09:12→20:50)
[2019-03-23] MEDS: APIXABAN 2.5 MG TABLET PO SCH ×2 (09:12→20:50)
[2019-03-23] MEDS: MULTIVITAMIN (CENTRUM) TABLET PO SCH (09:12)
[2019-03-23] MEDS: POTASSIUM CHLORIDE 20 MEQ TABLET PO PRN (09:13)
[2019-03-23] MEDS: HYDROXYCHLOROQUINE 200 MG TABLET PO SCH (09:13)
[2019-03-23] MEDS: ASPIRIN EC 81 MG TABLET PO SCH (09:13)
[2019-03-23] MEDS: ISOSORBIDE MONONITRATE 30 MG TABLET PO SCH (09:13)
[2019-03-23] MEDS: LANSOPRAZOLE ODT 30 MG TABLET PO SCH (09:14)
[2019-03-23] MEDS: MAGNESIUM OXIDE 400 MG TABLET PO SCH (09:14)
[2019-03-23] MEDS: SOTALOL 80 MG TABLET PO SCH ×2 (09:14→20:49)
[2019-03-23] MEDS: predniSONE 5 MG TABLET PO SCH (09:14)
[2019-03-23] MEDS: POTASSIUM CHLORIDE 10 MEQ TABLET PO SCH (09:14)
[2019-03-23] MEDS: DILTIAZEM CD 240 MG CAPSULE PO SCH (09:19)
[2019-03-23] MEDS: dilTIAZem Drip 125 MG/125 ML PREMIX IV SCH (11:27)
[2019-03-23] MEDS: MONTELUKAST 10 MG TABLET PO SCH (20:50)
[2019-03-24 05:51] LABS: Calcium 9.3 MG/DL (8.5-10.1); Osmolality,Calculated 279.5 MOS/KG (273-304)
[2019-03-24 06:16] LABS: Basophils # 0.1 10*3/uL (0.0-0.2); Basophils % 0.8 % (0.0-0.8); Hematocrit 42.3 VOL% (35.7-47.0); Immature Granulocytes % 1.1 %; Immature Granulocytes Absolute 0.09 #; Lymphocytes # 1.8 10*3/uL (1.4-4.0); Lymphocytes % 21.5 % (21.3-54.2); Mean Corpuscular Volume 91.6 FL (87-102); Mean Platelet Volume 10.3 FL (9.6-12.0); Monocytes % 13.9 % (1.7-12.7); Neutrophils % 62.7 % (38.7-73.9); Platelet Count 222 T/CUMM (130-400); Red Blood Count 4.62 MC/CUMM (3.8-5.5); Red Cell Distribution Width 16.4 % (9.3-17.3); White Blood Count 8.6 T/CUMM (4-12)
[2019-03-24 06:17] LABS: Hemoglobin 12.7 GM/DL (12.0-16.0)
[2019-03-24 07:21] VITALS: BP 161/76
[2019-03-24] MEDS: MAGNESIUM OXIDE 400 MG TABLET PO SCH (09:20)
[2019-03-24] MEDS: SOTALOL 80 MG TABLET PO SCH (09:20)
[2019-03-24] MEDS: MULTIVITAMIN (CENTRUM) TABLET PO SCH (09:20)
[2019-03-24] MEDS: POTASSIUM CHLORIDE 20 MEQ TABLET PO PRN (09:21)
[2019-03-24] MEDS: predniSONE 5 MG TABLET PO SCH (09:21)
[2019-03-24] MEDS: HYDROXYCHLOROQUINE 200 MG TABLET PO SCH (09:21)
[2019-03-24] MEDS: APIXABAN 2.5 MG TABLET PO SCH (09:21)
[2019-03-24] MEDS: ASCORBIC ACID 500 MG TABLET PO SCH (09:21)
[2019-03-24] MEDS: DILTIAZEM CD 240 MG CAPSULE PO SCH (09:22)
[2019-03-24] MEDS: ASPIRIN EC 81 MG TABLET PO SCH (09:22)
[2019-03-24] MEDS: ISOSORBIDE MONONITRATE 30 MG TABLET PO SCH (09:22)
[2019-03-24] MEDS: FUROSEMIDE 40 MG TABLET PO SCH (09:22)
[2019-03-24] MEDS: LANSOPRAZOLE ODT 30 MG TABLET PO SCH (09:23)
[2019-03-24] MEDS: POTASSIUM CHLORIDE 10 MEQ TABLET PO SCH (09:26)
== END 2019-03-24 11:15 | disposition home or self-care (01) | DRG 308 ==
LOC: N.ED 10:04 → N.EDINP 12:17 → N.TELES 12:42
PROVIDERS: ADMIT Internal Medicine Interventional Cardiology; ATTEND Internal Medicine Interventional Cardiology

== ENCOUNTER 2019-06-12 05:00 | Inpatient (IN) ==
[2019-06-12 05:30] LABS: Basophils # 0.1 10*3/uL (0.0-0.2); Basophils % 0.6 % (0.0-0.8); Hemoglobin 12.8 GM/DL (12.0-16.0); Immature Granulocytes % 1.5 %; Immature Granulocytes Absolute 0.16 #; Lymphocytes % 18.1 % (21.3-54.2); Mean Corpuscular HGB Conc 31.2 GM/DL (32-36); Mean Corpuscular Volume 92.1 FL (87-102); Mean Platelet Volume 9.7 FL (9.6-12.0); Monocytes % 13.3 % (1.7-12.7); Neutrophils % 66.5 % (38.7-73.9); Platelet Count 214 T/CUMM (130-400); Red Blood Count 4.45 MC/CUMM (3.8-5.5); Red Cell Distribution Width 14.8 % (9.3-17.3); White Blood Count 10.8 T/CUMM (4-12)
[2019-06-12 05:39] LABS: INR 1.1; PT Patient Result 12.1 SECS (9.6-12.2)
[2019-06-12 05:55] LABS: Albumin 2.9 G/DL (3.4-5.0); Bilirubin,Total 0.7 MG/DL (0.2-1.0); Calcium 9.8 MG/DL (8.5-10.1); Osmolality,Calculated 278.5 MOS/KG (273-304); Total Protein 7.6 G/DL (6.4-8.3)
[2019-06-12] MEDS ORDERED: FUROSEMIDE 40 MG/4 ML VIAL ONE (06:03)
[2019-06-12] MEDS ORDERED: FUROSEMIDE 100 MG/10 ML VIAL IV STA (06:03)
[2019-06-12 06:35] LABS: Amorphous Crystals,Urine Occasional /HPF (Few); Apearance,Urine CLOUDY (Clear); Bilirubin,Urine Negative (Negative); Blood, Urine Negative (Negative); Glucose,Urine (UA) Negative (Negative); Ketones,Urine Negative (Negative); Nitrite,Urine Negative (Negative); Protein,Urine 30 MG/DL; RBC,Urine 1 /HPF (0-4); Urine Color Yellow (Yellow); Urine Specific Gravity 1.016 (1.001-1.035); Urine Urobilinogen < 2.0 EU/DL (0.2-1.0); WBC,Urine 4 /HPF (0-6)
[2019-06-12] MEDS ORDERED: ASPIRIN 325 MG TABLET PO STA (07:30)
[2019-06-12] MEDS ORDERED: CLOPIDOGREL 300 MG TABLET PO STA (07:30)
[2019-06-12] MEDS ORDERED: HEPARIN 5,000 UNIT/1 ML VIAL IV ONE (07:30)
[2019-06-12] MEDS ORDERED: MORPHINE 4 MG/1 ML VIAL IV STA (07:39)
[2019-06-12] MEDS ORDERED: MORPHINE 4 MG/1 ML VIAL ONE (07:41)
[2019-06-12] MEDS ORDERED: LIDOCAINE 1% 20 ML VIAL ONE (07:57)
[2019-06-12] MEDS ORDERED: HEPARIN/NACL 0.9% 2 UNITS/ML 1,000 ML IV ONE (07:57)
[2019-06-12] MEDS ORDERED: HEPARIN/NACL 0.9% 2 UNITS/ML 500 ML IV ONE (08:02)
[2019-06-12] MEDS ORDERED: MIDAZOLAM 2 MG/2 ML VIAL ONE (08:02)
[2019-06-12] MEDS ORDERED: fentaNYL 100 MCG/2 ML VIAL ONE (08:03)
[2019-06-12] MEDS ORDERED: NITROGLYCERIN DRIP 50 MG/250 ML BOTTLE IV ONE (08:04)
[2019-06-12] MEDS ORDERED: HEPARIN 5,000 UNIT/1 ML VIAL ONE (08:04)
[2019-06-12 10:21] LABS: Basophils # 0.1 10*3/uL (0.0-0.2); Basophils % 0.8 % (0.0-0.8); Hematocrit 43.1 VOL% (35.7-47.0); Hemoglobin 13.1 GM/DL (12.0-16.0); Immature Granulocytes % 1.6 %; Immature Granulocytes Absolute 0.18 #; Lymphocytes # 2.1 10*3/uL (1.4-4.0); Lymphocytes % 18.9 % (21.3-54.2); Mean Corpuscular HGB Conc 30.4 GM/DL (32-36); Mean Corpuscular Volume 92.7 FL (87-102); Mean Platelet Volume 9.9 FL (9.6-12.0); Monocytes % 13.6 % (1.7-12.7); Neutrophils % 65.1 % (38.7-73.9); Platelet Count 210 T/CUMM (130-400); Red Blood Count 4.65 MC/CUMM (3.8-5.5); Red Cell Distribution Width 14.8 % (9.3-17.3); White Blood Count 11.2 T/CUMM (4-12)
[2019-06-12 11:16] LABS: Troponin I 0.059 NG/ML (0.00-0.045)
[2019-06-12] MEDS ORDERED: DILTIAZEM 50 MG/10 ML VIAL IV ONE (11:20)
[2019-06-12] MEDS: dilTIAZem Drip 125 MG/125 ML PREMIX IV SCH (11:32)
[2019-06-12] MEDS ORDERED: NITROGLYCERIN SL 0.4 MG TABLET SL PRN (16:25)
[2019-06-12] MEDS: SOTALOL 80 MG TABLET PO SCH ×2 (17:32→21:13)
[2019-06-12] MEDS: HYDROXYCHLOROQUINE 200 MG TABLET PO SCH (17:32)
[2019-06-12] MEDS: CLOPIDOGREL 75 MG TABLET PO SCH (17:32)
[2019-06-12] MEDS: ISOSORBIDE MONONITRATE 30 MG TABLET PO SCH (17:33)
[2019-06-12 19:14] LABS: Troponin I 0.304 NG/ML (0.00-0.045)
[2019-06-12] MEDS ORDERED: ACETAMINOPHEN 325 MG TABLET ONE (21:08)
[2019-06-12] MEDS: ACETAMINOPHEN 325 MG TABLET PO PRN (21:13)
[2019-06-12] MEDS: ROSUVASTATIN 10 MG TABLET PO SCH (21:13)
[2019-06-13 03:07] LABS: Hematocrit 40.8 VOL% (35.7-47.0); Hemoglobin 12.3 GM/DL (12.0-16.0)
[2019-06-13 03:31] LABS: Troponin I 0.254 NG/ML (0.00-0.045)
[2019-06-13] MEDS: HYDROXYCHLOROQUINE 200 MG TABLET PO SCH (08:42)
[2019-06-13] MEDS: ASPIRIN EC 81 MG TABLET PO SCH (08:42)
[2019-06-13] MEDS: FUROSEMIDE 40 MG/4 ML VIAL IV SCH (08:42)
[2019-06-13] MEDS: ISOSORBIDE MONONITRATE 30 MG TABLET PO SCH (08:43)
[2019-06-13] MEDS: CLOPIDOGREL 75 MG TABLET PO SCH (08:43)
[2019-06-13] MEDS: POTASSIUM CHLORIDE 20 MEQ TABLET PO SCH (08:43)
[2019-06-13] MEDS: DILTIAZEM CD 240 MG CAPSULE PO SCH (08:43)
[2019-06-13] MEDS: APIXABAN 2.5 MG TABLET PO SCH ×2 (08:43→21:51)
[2019-06-13] MEDS: SOTALOL 80 MG TABLET PO SCH ×2 (08:43→21:51)
[2019-06-13] MEDS: dilTIAZem Drip 125 MG/125 ML PREMIX IV SCH (11:11)
[2019-06-13] MEDS ORDERED: ALUMINUM/MAGNES/SIMETH MAX STR 30 ML UDCUP PO PRN (14:12)
[2019-06-13] MEDS ORDERED: ZALEPLON 5 MG CAPSULE PO PRN (14:12)
[2019-06-13] MEDS ORDERED: DOCUSATE SODIUM 100 MG CAPSULE PO PRN (14:12)
[2019-06-13] MEDS ORDERED: diphenhydrAMINE CAP 25 MG CAPSULE PO PRN (14:12)
[2019-06-13] MEDS ORDERED: hydrALAZINE 20 MG/1 ML VIAL IV PRN (14:12)
[2019-06-13] MEDS ORDERED: ONDANSETRON 4 MG/2 ML VIAL IV PRN (14:12)
[2019-06-13] MEDS ORDERED: BISACODYL 5 MG TABLET PO PRN (14:12)
[2019-06-13] MEDS ORDERED: guaiFENesin/DM ER 600-30 MG TABLET PO PRN (14:12)
[2019-06-13] MEDS ORDERED: MAGNESIUM HYDROXIDE SUSP 30 ML UDCUP PO PRN (14:36)
[2019-06-13] MEDS: IPRATROPIUM 0.06% NASAL SPRAY 15 ML BOTTLE BOTH NARES SCH ×2 (17:02→21:50)
[2019-06-13] MEDS: MONTELUKAST 10 MG TABLET PO SCH (21:51)
[2019-06-13] MEDS: ROSUVASTATIN 10 MG TABLET PO SCH (21:51)
[2019-06-13] MEDS: ASCORBIC ACID 500 MG TABLET PO SCH (21:51)
[2019-06-13] MEDS: BUDESONIDE/FORMOTEROL 80-4.5 INHALER 6.9 GM INH SCH (21:56)
[2019-06-14 05:42] LABS: Basophils # 0.1 10*3/uL (0.0-0.2); Basophils % 0.6 % (0.0-0.8); Hematocrit 38.7 VOL% (35.7-47.0); Hemoglobin 11.8 GM/DL (12.0-16.0); Immature Granulocytes % 1.5 %; Immature Granulocytes Absolute 0.18 #; Mean Corpuscular HGB Conc 30.5 GM/DL (32-36); Mean Corpuscular Volume 93.5 FL (87-102); Monocytes % 12.4 % (1.7-12.7); Neutrophils % 68.5 % (38.7-73.9); Platelet Count 200 T/CUMM (130-400); Red Blood Count 4.14 MC/CUMM (3.8-5.5); Red Cell Distribution Width 14.5 % (9.3-17.3); White Blood Count 11.9 T/CUMM (4-12)
[2019-06-14 06:22] LABS: Blood Urea Nitrogen 36 MG/DL (7-18); Estimated Glom Filtration Rate 52 ML/MIN; Glucose 85 MG/DL (74-106); Troponin I 0.153 NG/ML (0.00-0.045)
[2019-06-14] MEDS ORDERED: TUBERCULIN SKIN TEST 0.1 ML SYRINGE INTRADERM ONE (07:53)
[2019-06-14] MEDS: SOTALOL 80 MG TABLET PO SCH ×2 (10:42→20:19)
[2019-06-14] MEDS: HYDROXYCHLOROQUINE 200 MG TABLET PO SCH (10:42)
[2019-06-14] MEDS: POTASSIUM CHLORIDE 20 MEQ TABLET PO SCH (10:42)
[2019-06-14] MEDS: ISOSORBIDE MONONITRATE 30 MG TABLET PO SCH (10:42)
[2019-06-14] MEDS: ASCORBIC ACID 500 MG TABLET PO SCH ×2 (10:43→20:19)
[2019-06-14] MEDS: DILTIAZEM CD 240 MG CAPSULE PO SCH (10:43)
[2019-06-14] MEDS: FUROSEMIDE 40 MG/4 ML VIAL IV SCH (10:43)
[2019-06-14] MEDS: CLOPIDOGREL 75 MG TABLET PO SCH (10:43)
[2019-06-14] MEDS: APIXABAN 2.5 MG TABLET PO SCH ×2 (10:43→20:19)
[2019-06-14] MEDS: ASPIRIN EC 81 MG TABLET PO SCH (10:43)
[2019-06-14] MEDS: FLUTICASONE 50 MCG NASAL SPRAY 16 GM BOTTLE BOTH NARES SCH (10:45)
[2019-06-14] MEDS: BUDESONIDE/FORMOTEROL 80-4.5 INHALER 6.9 GM INH SCH ×2 (10:46→20:23)
[2019-06-14] MEDS: IPRATROPIUM 0.06% NASAL SPRAY 15 ML BOTTLE BOTH NARES SCH ×3 (10:46→20:22)
[2019-06-14] MEDS: MULTIVITAMIN (CENTRUM) TABLET PO SCH (13:09)
[2019-06-14] MEDS: MAGNESIUM OXIDE 400 MG TABLET PO SCH (13:09)
[2019-06-14] MEDS: METOPROLOL TARTRATE 5 MG/5 ML VIAL IV SCH ×3 (13:21→13:34)
[2019-06-14] MEDS: dilTIAZem Drip 125 MG/125 ML PREMIX IV SCH (19:07)
[2019-06-14] MEDS: ROSUVASTATIN 10 MG TABLET PO SCH (20:19)
[2019-06-14] MEDS: MONTELUKAST 10 MG TABLET PO SCH (20:26)
[2019-06-15] MEDS: ACETAMINOPHEN 325 MG TABLET PO PRN (01:57)
[2019-06-15 05:52] LABS: Basophils % 0.4 % (0.0-0.8); Hematocrit 38.8 VOL% (35.7-47.0); Hemoglobin 11.8 GM/DL (12.0-16.0); Immature Granulocytes % 1.4 %; Immature Granulocytes Absolute 0.14 #; Lymphocytes # 1.7 10*3/uL (1.4-4.0); Lymphocytes % 17.1 % (21.3-54.2); Mean Corpuscular HGB Conc 30.4 GM/DL (32-36); Mean Corpuscular Volume 93.3 FL (87-102); Mean Platelet Volume 10.5 FL (9.6-12.0); Monocytes % 13.5 % (1.7-12.7); Neutrophils % 67.6 % (38.7-73.9); Platelet Count 209 T/CUMM (130-400); Red Blood Count 4.16 MC/CUMM (3.8-5.5); Red Cell Distribution Width 14.6 % (9.3-17.3)
[2019-06-15 06:15] LABS: Calcium 9.4 MG/DL (8.5-10.1); Osmolality,Calculated 275.1 MOS/KG (273-304)
[2019-06-15] MEDS: POTASSIUM CHLORIDE 20 MEQ TABLET PO SCH (09:09)
[2019-06-15] MEDS: DILTIAZEM CD 240 MG CAPSULE PO SCH (09:09)
[2019-06-15] MEDS: CLOPIDOGREL 75 MG TABLET PO SCH (09:09)
[2019-06-15] MEDS: SOTALOL 80 MG TABLET PO SCH (09:09)
[2019-06-15] MEDS: ISOSORBIDE MONONITRATE 30 MG TABLET PO SCH (09:10)
[2019-06-15] MEDS: ASCORBIC ACID 500 MG TABLET PO SCH ×2 (09:10→21:15)
[2019-06-15] MEDS: ASPIRIN EC 81 MG TABLET PO SCH (09:10)
[2019-06-15] MEDS: HYDROXYCHLOROQUINE 200 MG TABLET PO SCH (09:10)
[2019-06-15] MEDS: APIXABAN 2.5 MG TABLET PO SCH ×2 (09:10→21:15)
[2019-06-15] MEDS: FUROSEMIDE 40 MG/4 ML VIAL IV SCH (09:11)
[2019-06-15] MEDS: BUDESONIDE/FORMOTEROL 80-4.5 INHALER 6.9 GM INH SCH ×2 (09:18→21:14)
[2019-06-15] MEDS: IPRATROPIUM 0.06% NASAL SPRAY 15 ML BOTTLE BOTH NARES SCH ×3 (09:21→21:16)
[2019-06-15] MEDS: FLUTICASONE 50 MCG NASAL SPRAY 16 GM BOTTLE BOTH NARES SCH (09:21)
[2019-06-15] MEDS ORDERED: SOTALOL 80 MG TABLET PO ONE (09:55)
[2019-06-15] MEDS: dilTIAZem Drip 125 MG/125 ML PREMIX IV SCH (10:42)
[2019-06-15] MEDS: MAGNESIUM OXIDE 400 MG TABLET PO SCH (11:01)
[2019-06-15] MEDS: MULTIVITAMIN (CENTRUM) TABLET PO SCH (11:01)
[2019-06-15] MEDS ORDERED: SOTALOL 80 MG TABLET PO SCH (21:00)
[2019-06-15] MEDS: ROSUVASTATIN 10 MG TABLET PO SCH (21:14)
[2019-06-15] MEDS: MONTELUKAST 10 MG TABLET PO SCH (21:15)
[2019-06-16 04:34] LABS: Basophils # 0.1 10*3/uL (0.0-0.2); Basophils % 0.5 % (0.0-0.8); Hematocrit 37.3 VOL% (35.7-47.0); Hemoglobin 11.2 GM/DL (12.0-16.0); Immature Granulocytes % 2.1 %; Lymphocytes # 1.9 10*3/uL (1.4-4.0); Lymphocytes % 19.5 % (21.3-54.2); Mean Platelet Volume 10.5 FL (9.6-12.0); Monocytes % 15.3 % (1.7-12.7); Neutrophils % 62.6 % (38.7-73.9); Platelet Count 206 T/CUMM (130-400); Red Blood Count 3.97 MC/CUMM (3.8-5.5); Red Cell Distribution Width 14.4 % (9.3-17.3); White Blood Count 9.5 T/CUMM (4-12)
[2019-06-16 04:50] LABS: Calcium 9.3 MG/DL (8.5-10.1); Osmolality,Calculated 279.5 MOS/KG (273-304)
[2019-06-16 07:57] VITALS: BP 140/63
[2019-06-16] MEDS ORDERED: FUROSEMIDE 40 MG TABLET PO SCH (09:00)
[2019-06-16] MEDS ORDERED: SOTALOL 80 MG TABLET PO SCH (09:00)
[2019-06-16] MEDS: CLOPIDOGREL 75 MG TABLET PO SCH (09:19)
[2019-06-16] MEDS: ASPIRIN EC 81 MG TABLET PO SCH (09:19)
[2019-06-16] MEDS: POTASSIUM CHLORIDE 20 MEQ TABLET PO SCH (09:19)
[2019-06-16] MEDS: DILTIAZEM CD 240 MG CAPSULE PO SCH (09:19)
[2019-06-16] MEDS: ASCORBIC ACID 500 MG TABLET PO SCH (09:19)
[2019-06-16] MEDS: ISOSORBIDE MONONITRATE 30 MG TABLET PO SCH (09:20)
[2019-06-16] MEDS: HYDROXYCHLOROQUINE 200 MG TABLET PO SCH (09:20)
[2019-06-16] MEDS: BUDESONIDE/FORMOTEROL 80-4.5 INHALER 6.9 GM INH SCH (09:20)
[2019-06-16] MEDS: APIXABAN 2.5 MG TABLET PO SCH (09:20)
[2019-06-16] MEDS: IPRATROPIUM 0.06% NASAL SPRAY 15 ML BOTTLE BOTH NARES SCH (09:21)
[2019-06-16] MEDS: FLUTICASONE 50 MCG NASAL SPRAY 16 GM BOTTLE BOTH NARES SCH (09:21)
== END 2019-06-16 12:19 | disposition home health service (06) | DRG 246 ==
LOC: N.ED 05:00 → N.EDINP 07:53 → N.CC 08:08 → N.TELEN 09:08
PROVIDERS: ADMIT Internal Medicine Cardiovascular Disease; ATTEND Internal Medicine Cardiovascular Disease

== ENCOUNTER 2019-07-30 12:12 | Inpatient (IN) ==
[2019-07-30 13:34] LABS: Basophils # 0.1 10*3/uL (0.0-0.2); Basophils % 0.5 % (0.0-0.8); Hematocrit 31.1 VOL% (35.7-47.0); Immature Granulocytes % 0.7 %; Immature Granulocytes Absolute 0.09 #; Lymphocytes # 1.6 10*3/uL (1.4-4.0); Lymphocytes % 13.6 % (21.3-54.2); Mean Corpuscular HGB Conc 28.9 GM/DL (32-36); Mean Corpuscular Volume 98.7 FL (87-102); Mean Platelet Volume 9.4 FL (9.6-12.0); Monocytes % 10.5 % (1.7-12.7); Neutrophils % 74.7 % (38.7-73.9); Platelet Count 302 T/CUMM (130-400); Red Blood Count 3.15 MC/CUMM (3.8-5.5)
[2019-07-30 13:44] LABS: INR 1.2; PT Patient Result 12.5 SECS (9.6-12.2); Partial Thromboplastin Time 29.8 SECS (20.8-36.0)
[2019-07-30 13:54] LABS: Albumin 2.1 G/DL (3.4-5.0); Bilirubin,Total 0.5 MG/DL (0.2-1.0); Calcium 9.2 MG/DL (8.5-10.1); Osmolality,Calculated 278.5 MOS/KG (273-304); Total Protein 6.7 G/DL (6.4-8.3)
[2019-07-30 14:04] LABS: CKMB % 4.7 %
[2019-07-30 14:05] LABS: Troponin I 0.349 NG/ML (0.00-0.045)
[2019-07-30 15:18] LABS: Hypochromasia 1+; Macrocytosis Slight; Microcytosis 1+; Platelet Estimate Adequate; Polychromasia Few; Stomatocytes Few
[2019-07-30] MEDS ORDERED: ONDANSETRON 4 MG/2 ML VIAL IV PRN (16:15)
[2019-07-30] MEDS ORDERED: MORPHINE 4 MG/1 ML VIAL IV PRN (16:15)
[2019-07-30] MEDS ORDERED: ALBUTEROL 2.5 MG/3 ML NEB RESP TX PRN (16:15)
[2019-07-30] MEDS ORDERED: SODIUM CHLORIDE 0.9% 1,000 ML IV SCH (16:30)
[2019-07-30] MEDS ORDERED: FAMOTIDINE 20 MG/2 ML VIAL IV SCH (17:00)
[2019-07-30] MEDS ORDERED: AMIODARONE 150 MG/3 ML VIAL ONE (17:05)
[2019-07-30] MEDS ORDERED: AMIODARONE 450 MG/9 ML VIAL IV ONE (17:05)
[2019-07-30 17:44] LABS: Apearance,Urine CLEAR (Clear); Bacteria,Urine Occasional /HPF (Few); Bilirubin,Urine Negative (Negative); Blood, Urine Negative (Negative); Glucose,Urine (UA) Negative (Negative); Hyaline Casts,Urine 27 /LPF (0-3); Ketones,Urine 5 mg/dL (Negative); Mucus,Urine Occasional /LPF (Occasional); Nitrite,Urine Negative (Negative); Protein,Urine Negative; RBC,Urine 5 /HPF (0-4); Squamous Epithelial Cell,Urine Occasional /HPF (0-10); Urine Color Yellow (Yellow); Urine Specific Gravity 1.012 (1.001-1.035); Urine Urobilinogen < 2.0 EU/DL (0.2-1.0); WBC,Urine 2 /HPF (0-6)
[2019-07-30] MEDS ORDERED: NITROGLYCERIN SL 0.4 MG TABLET SL PRN (17:57)
[2019-07-30] MEDS ORDERED: AMIODARONE INJ 150 MG in DEXTROSE 5% 100 ML IV ONE (18:00)
[2019-07-30 18:09] LABS: CKMB % 4.4 %
[2019-07-30 18:10] LABS: Troponin I 0.538 NG/ML (0.00-0.045)
[2019-07-30] MEDS ORDERED: AMIODARONE INJ 450 MG in DEXTROSE 5% 241 ML IV SCH (18:15)
[2019-07-30] MEDS: SUCRALFATE 1 GM/10 ML UDCUP NG SCH (18:30)
[2019-07-30] MEDS ORDERED: FUROSEMIDE 40 MG/4 ML VIAL IV ONE (18:38)
[2019-07-30] MEDS: SODIUM CHLORIDE 0.9% 1,000 ML IV SCH (19:30)
[2019-07-30 20:22] LABS: Troponin I 0.629 NG/ML (0.00-0.045)
[2019-07-30] MEDS: PANTOPRAZOLE 40 MG VIAL IV SCH (21:06)
[2019-07-31] MEDS: SUCRALFATE 1 GM/10 ML UDCUP NG SCH ×4 (00:31→18:08)
[2019-07-31] MEDS: AMIODARONE INJ 450 MG in DEXTROSE 5% 241 ML IV SCH ×4 (00:31→20:48)
[2019-07-31] MEDS: SODIUM CHLORIDE 0.9% 1,000 ML IV SCH ×2 (04:59→08:55)
[2019-07-31 06:25] LABS: Basophils # 0.1 10*3/uL (0.0-0.2); Basophils % 0.5 % (0.0-0.8); Hematocrit 30.1 VOL% (35.7-47.0); Hemoglobin 8.7 GM/DL (12.0-16.0); Immature Granulocytes % 0.8 %; Immature Granulocytes Absolute 0.11 #; Lymphocytes # 1.7 10*3/uL (1.4-4.0); Mean Corpuscular HGB Conc 28.9 GM/DL (32-36); Mean Platelet Volume 9.6 FL (9.6-12.0); Neutrophils % 74.7 % (38.7-73.9); Platelet Count 236 T/CUMM (130-400); Red Blood Count 3.04 MC/CUMM (3.8-5.5); Red Cell Distribution Width 15.2 % (9.3-17.3)
[2019-07-31] MEDS ORDERED: SODIUM CHLORIDE 0.9% 150 ML IV ONE (06:31)
[2019-07-31 06:45] LABS: Platelet Estimate Normal
[2019-07-31 06:46] LABS: Anisocytosis 2+
[2019-07-31 06:50] LABS: Albumin 1.9 G/DL (3.4-5.0); Bilirubin,Total 0.4 MG/DL (0.2-1.0); Osmolality,Calculated 278.8 MOS/KG (273-304); Total Protein 6.5 G/DL (6.4-8.3)
[2019-07-31 07:02] LABS: Free T4 (Free Thyroxine) 1.06 NG/DL (0.76-1.46); Thyroid Stimulating Hormone 3.75 uIU/ml (0.358-3.74)
[2019-07-31] MEDS ORDERED: MAGNESIUM SULF RIDER 4 GM in PREMIX 1 EACH IV PRN (07:16)
[2019-07-31] MEDS ORDERED: MAGNESIUM SULF RIDER 2 GM in PREMIX 1 EACH IV PRN (07:16)
[2019-07-31] MEDS: PANTOPRAZOLE 40 MG VIAL IV SCH ×2 (08:55→20:41)
[2019-07-31] MEDS: APIXABAN 2.5 MG TABLET PO SCH (08:58)
[2019-07-31] MEDS: ASPIRIN EC 81 MG TABLET PO SCH (08:58)
[2019-07-31] MEDS: CLOPIDOGREL 75 MG TABLET PO SCH (08:58)
[2019-07-31] MEDS: SOTALOL 80 MG TABLET PO SCH ×2 (08:58→20:41)
[2019-07-31] MEDS ORDERED: FUROSEMIDE 40 MG/4 ML VIAL IV ONE ×2 (09:06→13:06)
[2019-07-31] MEDS ORDERED: FUROSEMIDE 40 MG/4 ML VIAL ONE (09:08)
[2019-07-31] MEDS ORDERED: LEVALBUTEROL 1.25 MG/3 ML NEB RESP TX PRN ×2 (09:32→14:20)
[2019-07-31] MEDS ORDERED: LEVALBUTEROL 1.25 MG/3 ML NEB RESP TX SCH (11:00)
[2019-07-31] MEDS ORDERED: TEMAZEPAM 15 MG CAPSULE PO PRN (11:09)
[2019-07-31] MEDS: MAGNESIUM CHLORIDE 64 MG TABLET PO SCH (12:51)
[2019-07-31] MEDS: POTASSIUM CHLORIDE 10 MEQ TABLET PO SCH (12:51)
[2019-07-31] MEDS: DILTIAZEM CD 180 MG CAPSULE PO SCH (12:51)
[2019-07-31] MEDS: ISOSORBIDE MONONITRATE 30 MG TABLET PO SCH (12:51)
[2019-07-31] MEDS: BUDESONIDE/FORMOTEROL 80-4.5 INHALER 6.9 GM INH SCH ×2 (13:17→20:52)
[2019-07-31] MEDS: LEVALBUTEROL 1.25 MG/3 ML NEB RESP TX SCH ×3 (14:36→23:20)
[2019-07-31] MEDS: cefTRIAXone 1,000 MG in SYRINGE 1 EACH IV SCH (16:00)
[2019-07-31] MEDS: FUROSEMIDE 40 MG/4 ML VIAL IV SCH (16:00)
[2019-07-31] MEDS: MELATONIN 3 MG TABLET PO SCH (20:41)
[2019-07-31] MEDS: DOXYCYCLINE HYCLATE 100 MG CAPSULE PO SCH (20:42)
[2019-08-01] MEDS: SUCRALFATE 1 GM/10 ML UDCUP NG SCH ×5 (00:20→23:57)
[2019-08-01] MEDS: LEVALBUTEROL 1.25 MG/3 ML NEB RESP TX SCH ×6 (03:30→22:36)
[2019-08-01 05:50] LABS: Basophils % 0.2 % (0.0-0.8); Hematocrit 30.3 VOL% (35.7-47.0); Hemoglobin 8.8 GM/DL (12.0-16.0); Immature Granulocytes Absolute 0.13 #; Lymphocytes # 0.9 10*3/uL (1.4-4.0); Lymphocytes % 6.9 % (21.3-54.2); Mean Corpuscular Volume 99.3 FL (87-102); Mean Platelet Volume 9.5 FL (9.6-12.0); Monocytes % 9.6 % (1.7-12.7); Neutrophils % 82.3 % (38.7-73.9); Platelet Count 233 T/CUMM (130-400); Red Blood Count 3.05 MC/CUMM (3.8-5.5); Red Cell Distribution Width 15.6 % (9.3-17.3); White Blood Count 12.7 T/CUMM (4-12)
[2019-08-01 06:12] LABS: Risk Ratio 1.65
[2019-08-01] MEDS: AMIODARONE INJ 450 MG in DEXTROSE 5% 241 ML IV SCH ×2 (08:49→12:45)
[2019-08-01] MEDS: DOXYCYCLINE HYCLATE 100 MG CAPSULE PO SCH ×2 (08:51→21:13)
[2019-08-01] MEDS: SOTALOL 80 MG TABLET PO SCH (08:52)
[2019-08-01] MEDS: APIXABAN 2.5 MG TABLET PO SCH (08:54)
[2019-08-01] MEDS: ISOSORBIDE MONONITRATE 30 MG TABLET PO SCH (08:54)
[2019-08-01] MEDS: DILTIAZEM CD 180 MG CAPSULE PO SCH (08:54)
[2019-08-01] MEDS: ASPIRIN EC 81 MG TABLET PO SCH (08:55)
[2019-08-01] MEDS: CLOPIDOGREL 75 MG TABLET PO SCH (08:55)
[2019-08-01] MEDS: FUROSEMIDE 40 MG/4 ML VIAL IV SCH (08:55)
[2019-08-01] MEDS: PANTOPRAZOLE 40 MG VIAL IV SCH ×2 (08:57→21:13)
[2019-08-01] MEDS: BUDESONIDE/FORMOTEROL 80-4.5 INHALER 6.9 GM INH SCH ×2 (09:00→21:13)
[2019-08-01] MEDS: POTASSIUM CHLORIDE 10 MEQ TABLET PO SCH (13:03)
[2019-08-01] MEDS: MAGNESIUM CHLORIDE 64 MG TABLET PO SCH (13:04)
[2019-08-01] MEDS: cefTRIAXone 1,000 MG in SYRINGE 1 EACH IV SCH (16:56)
[2019-08-01] MEDS: MELATONIN 3 MG TABLET PO SCH (21:13)
[2019-08-01] MEDS: METOPROLOL TARTRATE 50 MG TABLET PO SCH (21:13)
[2019-08-02] MEDS: LEVALBUTEROL 1.25 MG/3 ML NEB RESP TX SCH ×3 (02:37→11:05)
[2019-08-02] MEDS: AMIODARONE INJ 450 MG in DEXTROSE 5% 241 ML IV SCH (03:00)
[2019-08-02 06:01] LABS: Basophils % 0.3 % (0.0-0.8); Hematocrit 26.8 VOL% (35.7-47.0); Hemoglobin 7.8 GM/DL (12.0-16.0); Immature Granulocytes % 0.7 %; Immature Granulocytes Absolute 0.09 #; Lymphocytes % 7.6 % (21.3-54.2); Mean Corpuscular HGB Conc 29.1 GM/DL (32-36); Mean Corpuscular Volume 99.3 FL (87-102); Mean Platelet Volume 9.7 FL (9.6-12.0); Monocytes % 9.6 % (1.7-12.7); Neutrophils % 81.8 % (38.7-73.9); Platelet Count 216 T/CUMM (130-400); Red Cell Distribution Width 15.7 % (9.3-17.3); White Blood Count 13.8 T/CUMM (4-12)
[2019-08-02 06:35] LABS: Osmolality,Calculated 280.1 MOS/KG (273-304)
[2019-08-02] MEDS: SUCRALFATE 1 GM/10 ML UDCUP NG SCH ×2 (06:35→12:13)
[2019-08-02] MEDS ORDERED: FUROSEMIDE 40 MG/4 ML VIAL IV SCH (09:00)
[2019-08-02] MEDS ORDERED: AMIODARONE 200 MG TABLET PO SCH (09:00)
[2019-08-02] MEDS: ISOSORBIDE MONONITRATE 30 MG TABLET PO SCH (09:56)
[2019-08-02] MEDS: DILTIAZEM CD 180 MG CAPSULE PO SCH (09:56)
[2019-08-02] MEDS: ASPIRIN EC 81 MG TABLET PO SCH (09:56)
[2019-08-02] MEDS: DOXYCYCLINE HYCLATE 100 MG CAPSULE PO SCH (09:56)
[2019-08-02] MEDS: METOPROLOL TARTRATE 50 MG TABLET PO SCH (09:57)
[2019-08-02] MEDS: APIXABAN 2.5 MG TABLET PO SCH (09:57)
[2019-08-02] MEDS: PANTOPRAZOLE 40 MG VIAL IV SCH (09:57)
[2019-08-02] MEDS: CLOPIDOGREL 75 MG TABLET PO SCH (09:57)
[2019-08-02 10:10] VITALS: BP 132/53
[2019-08-02] MEDS: BUDESONIDE/FORMOTEROL 80-4.5 INHALER 6.9 GM INH SCH (10:10)
[2019-08-02] MEDS ORDERED: ISOSORBIDE MONONITRATE 30 MG TABLET PO ONE (10:35)
[2019-08-02] MEDS ORDERED: NITROGLYCERIN 2% OINT 1 INCH/GM PACK TOP SCH (12:00)
[2019-08-02] MEDS: POTASSIUM CHLORIDE 10 MEQ TABLET PO SCH (12:13)
[2019-08-02] MEDS: MAGNESIUM CHLORIDE 64 MG TABLET PO SCH (12:13)
[2019-08-03] MEDS ORDERED: ISOSORBIDE MONONITRATE 30 MG TABLET PO SCH (09:00)
[2019-08-08] MEDS ORDERED: AMIODARONE 200 MG TABLET PO SCH (09:00)
== END 2019-08-02 13:32 | disposition hospice, home (50) | DRG 308 ==
LOC: N.ED 12:12 → SUATTDRO 16:15 → N.EDINP 16:15 → N.ICU 17:05
PROVIDERS: ADMIT Family Medicine; ATTEND Internal Medicine